=== PATIENT | female | born 1945 | race Caucasian/White ===

== ENCOUNTER → 2017-10-05 | Day surgery (SDC) | payer OTHER ==
[~2017-10-05] VITALS: Ht 160 cm; Wt 65.8 kg
[~2017-10-05] MED LIST: CLARITIN10 M1 PO; KLOR-CON 1010 ME1 PO; PROBIOTIC1 EACH PO; TENORMIN25 M1 PO
--- NOTE | 2017-10-05 11:38 | Operative Report ---
Operative/Inv Procedure Report Surgery Date: 10/05/17 Name of Procedure: Left partial mastectomy with wire localization and sentinel lymph node biopsy Pre-Operative Diagnosis: Left breast cancer Post-Operative Diagnosis: Same Estimated Blood Loss: less than 50ml Surgeon/Dry Wall Plasterer: Emely Marcus MD Anesthesia: laryngeal mask airway Specimens: Left lumpectomy, caudal margin, medial margin, sentinel lymph node Operative/Procedure Note Note: Patient has a known left breast cancer diagnosed by core needle biopsy. The lesion is in the extreme upper aspect of the left breast at 12:00. She is brought to the operating room for definitive surgical management. Preoperative lymphoscintigraphy and wire localization was performed and the films were reviewed. She was placed under anesthesia given 2 g of Ancef and the left breast prepped and draped in a sterile fashion using ChloraPrep. 3 mL of methylene blue diluted 2 mL of saline was injected in the retroareolar fashion. Incision was planned. Using lighted retractors, it was felt that the lumpectomy was approachable through an axillary incision. Local anesthesia 1% lidocaine mixed Marcaine Was Given and a Transverse Incision Was Made in the Axilla Extending Medially to the Pectoralis Muscle. The Axilla Was Approached First. Clavipectoral Fascia Was Entered and a Hot Lymph Node Was Identified in the Axilla. This Was Excised with Counts to 650. No Other Hot, Blue, or Palpable Lymph Nodes Were Identified in the Axilla. The Dissection Then Began in the Retro-glandularPlane along the Pectoralis Muscle. The breast tissue was lifted off the pectoralis muscle extending to the superior portion of the breast and medially to the medial portion of the breast. The subcutaneous plane was then dissected. The wire was brought into the incision. The area of concern was grasped and dissected widely. All tissue between the subcutaneous tissue and the pectoralis muscle was excised as well as the tissue in the upper pole of the breast. Specimen was marked for orientation as a margin map. Intraoperative x- ray confirmed presence of the clip in specimen. Additional margins were taken in the caudal and medial aspects given the wide lateral dissection and the extent of anterior posterior and cranial dissection. Hemostasis was achieved using electrocautery. Clips were placed using margins of the lumpectomy. Deep tissue was approximated using interrupted Vicryl sutures. The clavipectoral fascia was also closed similarly. Skin was closed using running Biosyn subcuticular stitch. Sterile was and sterile dressings were applied and patient transferred to the recovery room in satisfactory condition having tolerated the procedure well.
--- NOTE | 2017-10-06 09:38 | MAMMOGRAPHY REPORT ---
EXAMINATION: MM NEEDLE LOCALIZATION SPECIMEN FROM THE BREAST, LEFT CLINICAL INDICATION: Specimen radiograph of the excised invasive ductal carcinoma in the left breast 12:00 position. COMPARISON: Needle localization films from earlier the same day. TECHNIQUE: Single frontal view of the specimen radiograph was obtained. FINDINGS: The radiograph of the excised surgical specimen shows that the hookwire is delivered intact and the marker clip and associated subtle spiculated mass are identified in the specimen. IMPRESSION: Satisfactory excision of the targeted lesion. These findings were communicated to the surgeon in the OR at the time of specimen radiography.
--- NOTE | 2017-10-08 08:55 | MAMMOGRAPHY REPORT ---
EXAMINATION: US GUIDED NEEDLE LOCALIZATION BREAST, LEFT BREAST POST PROCEDURE LEFT BREAST DIAGNOSTIC MAMMOGRAM CLINICAL INFORMATION: Invasive ductal carcinoma found on biopsy of a small nodule in the left breast 12:00 position. Preoperative needle localization. COMPARISON: Left breast ultrasound-guided biopsy dated 07/19/2017, mammogram dated 07/13/2017, 07/06/2017, 07/19/2017 and 10/19/2014. TECHNIQUE NEEDLE LOC: Proper informed consent is obtained from the patient after discussion of the procedure, potential risks and complications, and alternatives including declining the procedure today. Patient was given an opportunity for questions. The patient appeared to understand. The patient consented to the procedure and signed the consent form. GUIDANCE: Ultrasound. APPROACH: Lateral TARGET: 0.2 cm diameter hypoechoic mass with irregular margins and slight posterior shadowing. ANESTHESIA: 5 mL lidocaine 1% LOCALIZATION MARKER: Connexient 5 cm needle localization system. The skin was prepped and local anesthesia administered. The needle was positioned and position assessed with mammography. The wire was hooked into position. The patient tolerated the procedure well and had no immediate complication. Postprocedure mammogram in the CC projection was performed. Diagram was marked for the surgeon. The target is located around the thick segment of the wire, 3.1 cm deep to the skin with 9.5 cm of the wire remaining external to the skin. IMPRESSION: Status post left breast needle localization with wire hooked into position. The target is located around the thick segment of the wire, 3.1 cm deep to the skin with 9.5 cm of the wire remaining external to the skin.
== END ==
LOC: STS 03:22 → CBW.IIU 07:00 → CBW.US 08:00
DX: C50.812 Malignant neoplasm of overlapping sites of left female breast (principal); Z17.0 Estrogen receptor positive status [ER+]; Z80.3 Family history of malignant neoplasm of breast; I10 Essential (primary) hypertension; I49.3 Ventricular premature depolarization; K21.9 Gastro-esophageal reflux disease without esophagitis
CPT/HCPCS: 76942; 77065-LT; G0279; J0131; J0690; J2001; J2250; J3490; Q9968